=== PATIENT | female | born 1980 | race Caucasian/White ===

== ENCOUNTER → 2017-04-17 | Outpatient (CLI) | payer BC ==
[~2017-04-17] MED LIST: IOHEXOL 350 MG/ML 100 ML (OMNIPAQUE 350) VIAL IV ONE; LEVAQUIN; METH4TAB PO; NS 100 ML (IVPB) BAG IV ONE; SYMBICORT
[2017-04-17 12:11] LABS: MEAN PLATELET VOLUME 8.1 FL (7.4-10.4); RED BLOOD COUNT 4.52 10^6/uL (4.35-5.85); RED CELL DISTRIBUTION WIDTH 11.9 % (10.0-14.5); WHITE BLOOD COUNT 7.3 10^3/uL (4.3-11.0)
[2017-04-17 12:25] LABS: ALANINE AMINOTRANSFERASE 37 U/L (0-55); ALBUMIN 3.9 GM/DL (3.2-4.5); ANION GAP 9 MMOL/L (5-14); ASPARTATE AMINO TRANSFERASE 20 U/L (5-34); BILIRUBIN,TOTAL 1.1 MG/DL (0.1-1.0); BLOOD UREA NITROGEN 9 MG/DL (7-18); BUN/CREATININE RATIO 13; CALCIUM 8.8 MG/DL (8.5-10.1); CARBON DIOXIDE 23 MMOL/L (21-32); CHLORIDE 106 MMOL/L (98-107); GFR ESTIMATED > 60; GLUCOSE 87 MG/DL (70-105); POTASSIUM 3.5 MMOL/L (3.6-5.0); SODIUM 138 MMOL/L (135-145); TOTAL PROTEIN 6.6 GM/DL (6.4-8.2)
--- NOTE | 2017-04-17 12:28 | Diagnostic Imaging Report ---
PROCEDURE: CT abdomen and pelvis with and without contrast. TECHNIQUE: Precontrast acquisitions were acquired through the abdomen and pelvis. Multiple contiguous axial images were obtained through the abdomen and pelvis after the administration of intravenous contrast. INDICATION: Abdominal pain. 100 mL of Omnipaque 350 administered intravenously. FINDINGS: The unenhanced phase demonstrates no urinary tract stones or hydronephrosis seen. There is symmetric enhancement and contrast excretion seen. The liver demonstrates diffuse fatty infiltration. Cholecystectomy clips are seen. The spleen is not enlarged. The pancreas and adrenal glands appear unremarkable. The abdominal aorta is normal in caliber. No periaortic significantly enlarged lymph node is seen. There is no bowel obstruction. The appendix appears normal. There are a few diverticula seen in the sigmoid colon with no evidence of diverticulitis. No significant free fluid or fluid collection in the abdomen or pelvis. The uterus and adnexa are unremarkable. The lung bases appear clear. Osseous structures demonstrate moderate degenerative changes in the SI joints with vacuum phenomenon. IMPRESSION: 1. No urinary tract stones or hydronephrosis. The appendix is normal. 2. Hepatic steatosis. 3. Diverticulosis. No diverticulitis. Dictated by: Dictated on workstation # [id number]
== END ==
LOC: RAD 11:20
PROVIDERS: ATTEND Family Medicine
DX: K76.0 Fatty (change of) liver, not elsewhere classified (principal); K57.30 Diverticulosis of large intestine without perforation or abscess without bleeding
CPT/HCPCS: 36415; 74178; 80053; 85027

== ENCOUNTER → 2017-07-18 | Outpatient (CLI) | payer BC ==
[~2017-07-18] MED LIST changes: -IOHEXOL 350 MG/ML 100 ML (OMNIPAQUE 350) VIAL IV ONE; -NS 100 ML (IVPB) BAG IV ONE
== END ==
LOC: CARD 11:03
PROVIDERS: ATTEND Internal Medicine Interventional Cardiology
DX: I10 Essential (primary) hypertension (principal); R42 Dizziness and giddiness; R07.9 Chest pain, unspecified; F17.200 Nicotine dependence, unspecified, uncomplicated
CPT/HCPCS: 93306

== ENCOUNTER 2017-08-07 13:00 | Outpatient (RCR) | payer BC | END 2017-10-16 | disposition home or self-care (01) | LOC: CARD 13:00 | PROVIDERS: ATTEND Internal Medicine Interventional Cardiology | DX: R07.9 Chest pain, unspecified (principal); R42 Dizziness and giddiness; F17.200 Nicotine dependence, unspecified, uncomplicated | CPT/HCPCS: 93270 ==

== ENCOUNTER 2017-08-17 13:47 | Outpatient (RCR) | payer BC ==
[2017-08-22 14:06] VITALS: BP 100/70
--- NOTE | 2017-08-22 14:06 | Cardiology Stress Test Report ---
Stress Test Report Date of Procedure/Referring: Date of Procedure: Aug 17, 2017 Physician/Services Referral: Adelso Vásquez MD Admitting Physician Heri Don MD Indications: Chest pain Baseline Heart Rate: 97 Baseline Blood Pressure: Blood Pressure Systolic: 100 Blood Pressure Diastolic: 70 Baseline EKG: Baseline EKG: Sinus rhythm Summary: In summary, the patient started exercising with a baseline heart rate, blood pressure and EKG mentioned above patients achieved max HR 163bpm, which is 89% of maximum predicted heart rate response. Max BP 170/93mmhg. patient did not have any chest pain, arrhythmias or ST abnormalities. Normal treadmill stress test. Conclusion: Above average functional capacity. normotensive response to exercise. negative for ischemia. Adelso KEMP MD Aug 22, 2017 14:05
== END 2017-11-15 | disposition home or self-care (01) ==
LOC: CARD 13:47
PROVIDERS: ATTEND Internal Medicine Interventional Cardiology
DX: R07.9 Chest pain, unspecified (principal); R42 Dizziness and giddiness; I10 Essential (primary) hypertension; F17.200 Nicotine dependence, unspecified, uncomplicated
CPT/HCPCS: 93225; 93226

== ENCOUNTER → 2017-08-17 | Outpatient (CLI) | payer BC | LOC: CARD 13:43 | PROVIDERS: ATTEND Internal Medicine Interventional Cardiology | DX: I10 Essential (primary) hypertension (principal); R42 Dizziness and giddiness; R07.9 Chest pain, unspecified; F17.200 Nicotine dependence, unspecified, uncomplicated | CPT/HCPCS: 93017 ==